=== PATIENT | female | born 1985 | race Caucasian/White ===

== ENCOUNTER 2020-06-15 18:19 | Emergency (ER) | payer SELFPAY ==
[~2020-06-15] VITALS: Ht 154.9 cm; Wt 63.6 kg
[2020-06-15 18:29] VITALS: BP 109/81
[2020-06-15] MEDS ORDERED: OMEP40CA45 PO (18:36)
--- NOTE | 2020-06-15 19:03 | PHYS DOC ---
Past History Past Medical History: Other Additional Past Medical Histor: EOSINOPHILIC ESOPHAGITIS Past Surgical History: No Surgical History Alcohol Use: Occasionally General Adult EDM: Chief Complaint: LACERATION/AVULSION HPI: HPI: 34-year-old female presents with right index finger laceration. The patient was cutting some fast ties off and the knife slipped and lacerated her finger. [place]. It was bleeding pretty good she thought she might need stitches so she came to the ER. Patient denies any other injuries or complaints. Review of Systems: Review of Systems: Constitutional: Denies fever or chills Eyes: Denies change in visual acuity HENT: Denies nasal congestion or sore throat Respiratory: Denies cough or shortness of breath Cardiovascular: Denies chest pain or edema GI: Denies abdominal pain, nausea, vomiting, bloody stools or diarrhea : Denies dysuria Musculoskeletal: Denies back pain or joint pain Integument: Laceration right index finger Neurologic: Denies headache, focal weakness or sensory changes Endocrine: Denies polyuria or polydipsia Lymphatic: Denies swollen glands Psychiatric: Denies depression or anxiety Allergies: Allergies: Allergies Coded Allergies Type Severity Reaction Last Updated Verified No Known Drug Allergies 06/15/20 No Physical Exam: PE: Constitutional: Well developed, well nourished, no acute distress, non-toxic appearance. [] HENT: Normocephalic, atraumatic, bilateral external ears normal, oropharynx moist, no oral exudates, nose normal. [] Eyes: PERRLA, EOMI, conjunctiva normal, no discharge. [] Neck: Normal range of motion, no tenderness, supple, no stridor. [] Cardiovascular:Heart rate regular rhythm, no murmur [] Lungs & Thorax: Bilateral breath sounds clear to auscultation [] Abdomen: Bowel sounds normal, soft, no tenderness, no masses, no pulsatile masses. [] Skin: 1 cm linear laceration of the right index finger. [] Back: No tenderness, no CVA tenderness. [] Extremities: No tenderness, no cyanosis, no clubbing, ROM intact, no edema. [] Neurologic: Alert and oriented X 3, normal motor function, normal sensory function, no focal deficits noted. [] Psychologic: Affect normal, judgement normal, mood normal. [] Current Patient Data: Vital Signs: Vital Signs Date Time Temp Pulse Resp B/P (MAP) Pulse Ox O2 Delivery O2 Flow Rate FiO2 06/15/20 18:29 98.7 95 18 109/81 (90) 97 Room Air EKG: EKG: [] Radiology/Procedures: Radiology/Procedures: [] Heart Score: C/O Chest Pain: N/A Risk Factors: Risk Factors: DM, Current or recent (<one month) smoker, HTN, HLP, family history of CAD, obesity. Risk Scores: Score 0 - 3: 2.5% MACE over next 6 weeks - Discharge Home Score 4 - 6: 20.3% MACE over next 6 weeks - Admit for Clinical Observation Score 7 - 10: 72.7% MACE over next 6 weeks - Early Invasive Strategies Course & Med Decision Making: Course & Med Decision Making Pertinent Labs and Imaging studies reviewed. (See chart for details) The patient's laceration was amenable to sutures. I repaired it. See note below for more details. Her tetanus is up-to-date. [] Dragon Disclaimer: Dragon Disclaimer: This electronic medical record was generated, in whole or in part, using a voice recognition dictation system. Laceration Repair Lac Repair Indication: [] 1 cm linear laceration of the right index finger Procedure: I obtained verbal consent from the patient for suture repair of her finger laceration. The wound was thoroughly irrigated with normal saline under pressure. No foreign bodies were found. I anesthetized the wound with 1.5 cc of 2% lidocaine without epinephrine. I repaired the wound with 4-0 Ethilon suture. 3 sutures were placed in interrupted fashion. There was good skin approximation. Bleeding was controlled. A clean dressing was applied. No tetanus shot was needed as she got one in 2018. Total repaired wound length: 1 cm Other Items: None The patient tolerated the procedure well. Complications: None. Departure Departure: Impression: Primary Impression: Laceration of right index finger Qualified Codes: S61.210A - Laceration without foreign body of right index finger without damage to nail, initial encounter Disposition: HOME / SELF CARE / HOMELESS Condition: IMPROVED Referrals: PCP,NO (PCP) Patient Instructions: Laceration Care, Adult, [id number] Additional Instructions: Please have your sutures removed in 7 days. BRENDA RODRIGUEZ DO June 15, 2020 19:03
== END 2020-06-15 19:13 | disposition home or self-care (01) ==
LOC: ER 18:19
DX: S61.210A Laceration without foreign body of right index finger without damage to nail, initial encounter (principal); W26.0XXA Contact with knife, initial encounter; Y93.89 Activity, other specified; Y92.89 Other specified places as the place of occurrence of the external cause; Y99.8 Other external cause status
CPT/HCPCS: 12001; 99282-25